=== PATIENT | male | born 1980 | race Caucasian/White ===

== ENCOUNTER 2016-09-17 18:17 | Emergency (ER) | payer MEDICAID ==
--- NOTE | 2016-09-17 19:27 | EDM.PDOC ---
ED HPI GENERAL MEDICAL PROBLEM - General Chief Complaint: General Stated Complaint: KNOB IN BETWEEN RIB CAGE IS HARD, [id number] Time Seen by Provider: 09/17/16 19:21 Source of Information: Reports: Patient History Limitations: Reports: No Limitations - History of Present Illness INITIAL COMMENTS - FREE TEXT/NARRATIVE: c/o bump and discomfort to lower sternum,x one month worse last 2 days, worse with movement and sitting. Denies injury, works as farm labor, working and leaning over equipment frequently and lifting. No relief with ibuprofen. Mid-Anterior Chest Pain Score (Numeric/FACES): 10 - Related Data Allergies Allergy/AdvReac Type Severity Reaction Status Date / Time No Known Allergies Allergy Verified 09/17/16 18:43 Home Meds: Home Meds . [No Known Home Meds] 09/17/16 [History] Past Medical History Cardiovascular History: Reports: Heart Murmur Social & Family History - Family History Respiratory: Reports: COPD - Tobacco Use Smoking Status *Q: Current Every Day Smoker Years of Tobacco use: 20 Packs/Tins Daily: 20 - Caffeine Use Caffeine Use: Reports: Soda - Recreational Drug Use Recreational Drug Use: No ED ROS GENERAL - Review of Systems Review Of Systems: See Below Constitutional: Denies: Fever, Chills HEENT: Reports: No Symptoms Respiratory: Reports: No Symptoms Cardiovascular: Reports: No Symptoms GI/Abdominal: Reports: No Symptoms Musculoskeletal: Reports: Other (pain to lower sternum) ED EXAM, GENERAL - Physical Exam Exam: See Below Exam Limited By: No Limitations General Appearance: Alert, Mild Distress Eye Exam: Bilateral Eye: EOMI Ears: Normal External Exam, Normal TMs Nose: Normal Inspection Throat/Mouth: Normal Inspection Head: Atraumatic, Normocephalic Neck: Normal Inspection, Full Range of Motion Respiratory/Chest: No Respiratory Distress, Lungs Clear, Normal Breath Sounds, Other (pain to lower sternum medial lower ribs tender with pressure, no pain lateral ribs,) GI/Abdominal: Normal Bowel Sounds, Soft, Non-Tender. No: Distended, Guarding, Tender Back Exam: Normal Inspection Neurological: Alert, Oriented Psychiatric: Normal Affect Skin Exam: Warm, Dry, Intact, Normal Color Course - Vital Signs Last Recorded V/S: Last Vital Signs Temp 98.2 F 09/17/16 20:14 Pulse 74 09/17/16 20:14 Resp 18 08/01/17 20:14 BP 145/82 H 09/17/16 20:14 Pulse Ox 95 09/17/16 20:14 - Orders/Labs/Meds Meds: Medications Discontinued Medications Generic Name Dose Route Start Last Admin Trade Name Gunner PRN Reason Stop Dose Admin Tramadol HCl Confirm 09/17/16 20:15 09/17/16 20:21 Ultram Administered 09/17/16 20:16 Not Given Dose 100 mg .ROUTE .STK-MED ONE - Radiology Interpretation Free Text/Narrative:: sternal xray negative Departure - Departure Time of Disposition: 20:17 Disposition: Home, Self-Care 01 Condition: Fair Clinical Impression: Pain of sternum - Discharge Information Instructions: Costochondritis, [id number] Referrals: Serene Haile, [employer] [Ordering Only Provider] - Forms: ED Department Discharge Additional Instructions: tramadol 50mg one every 6 hours as needed for pain do not take with ibuprofen, may supplement with one tylenol follow up with prior scheduled appointment on friday if not improving
[2016-09-17 20:15] VITALS: BP 145/82
[2016-09-17] MEDS ORDERED: traMADol 50 MG Tab ONE (20:15)
[2016-09-17] MEDS ORDERED: traMADol 50 MG Tab PO ONE (20:15)
== END 2016-09-17 20:23 | disposition home or self-care (01) ==
LOC: DL.ED 18:17
DX: R07.89 Other chest pain (principal); F17.210 Nicotine dependence, cigarettes, uncomplicated
CPT/HCPCS: 71120; 99284; A9270